=== PATIENT | female | born 1960 | race Caucasian/White ===

== ENCOUNTER 2021-03-22 07:46 | Outpatient (REF) | payer OTHER, SELFPAY ==
[2021-03-22 08:23] LABS: MANUAL DIFF FLAG NO
[2021-03-22 08:30] LABS: Basophils Percent Auto 0.6 % (0-2); Eosinophils Absolute Auto 0.4 X10*3/uL (0.0-0.4); Eosinophils Percent Auto 7.6 % (0-4); Hematocrit 40.5 % (37-47); Hemoglobin 13.4 g/dl (12.0-16.0); Imm Gran Abs Auto 0.01 X10*3/uL (0.00-0.03); Imm Gran Pct Auto 0.2 % (0.0-0.4); Lymphocytes Absolute Auto 1.4 X10*3/uL (1.2-4.9); Lymphocytes Percent Auto 28.7 % (20-40); Mean Corpuscular HGB Conc 33.1 g/dl (31.0-35.0); Mean Corpuscular Hemoglobin 30.1 pg (27.0-33.0); Mean Platelet Volume 12.1 fL (9.4-12.3); Monocytes Absolute Auto 0.5 X10*3/uL (0.1-1.2); Monocytes Percent Auto 10.7 % (2-11); Neutrophils Absolute Auto 2.5 X10*3/uL (2.0-8.3); Neutrophils Percent Auto 52.2 % (45-73); Platelet Count 151 X10*3/uL (160-400); Red Blood Count 4.45 X10*6/uL (4.20-5.50); Red Cell Distribution Width 13.2 % (11.0-16.0); White Blood Count 4.8 X10*3/uL (4.8-10.8)
[2021-03-22 08:54] LABS: Alanine Aminotransferase 51 U/L (0-31); Albumin Level 4.1 g/dL (3.5-5.0); Alkaline Phosphatase 54 U/L (39-117); Anion Gap 13 (12-20); Aspartate Amino Transferase 34 U/L (5-31); Bilirubin Total 0.6 mg/dL (0.0-1.0); Blood Urea Nitrogen 12 mg/dL (9-16); Calcium 9.2 mg/dL (8.4-10.2); Carbon Dioxide 27 mmol/L (22-29); Chloride 103 mmol/L (96-108); Cholesterol 234 mg/dL; Estimated Glomerular Filt Rate > 60; Glucose Fasting 84 mg/dL (60-99); HDL Cholesterol 63 mg/dL; LDL Cholesterol Calculated 124 mg/dl; Potassium 4.5 mmol/L (3.3-5.1); Sodium 138 mmol/L (135-145); Total Protein 7.1 g/dL (6.5-8.0); Triglycerides 238 mg/dL
[2021-03-22 09:07] LABS: Free T4 (Free Thyroxine) 0.87 ng/dL (0.71-1.85); Thyroid Stimulating Hormone 1.29 uIU/mL (0.32-4.0)
== END 2021-03-22 07:47 | disposition home or self-care (01) ==
LOC: HO.LAB 07:46
PROVIDERS: PCP Internal Medicine; Visit Provider Internal Medicine
DX: Z00.00 Encounter for general adult medical examination without abnormal findings (principal); R00.2 Palpitations
CPT/HCPCS: 36415; 80053; 80061; 84439; 84443; 85025

== ENCOUNTER 2021-07-22 11:45 | Outpatient (REF) | payer OTHER, SELFPAY ==
[2021-07-22 14:27] LABS: D Dimer < 200 NG/ML
[2021-07-22 14:31] LABS: B Type Natriuretic Peptide 13 pg/mL (<100)
[2021-07-22 14:41] LABS: Alanine Aminotransferase 47 U/L (0-31); Albumin Level 4.3 g/dL (3.5-5.0); Alkaline Phosphatase 65 U/L (39-117); Anion Gap 14 (12-20); Aspartate Amino Transferase 30 U/L (5-31); Bilirubin Total 0.4 mg/dL (0.0-1.0); Blood Urea Nitrogen 11 mg/dL (9-16); C Reactive Protein 0.46 mg/dL (< or = 0.50); Calcium 9.7 mg/dL (8.4-10.2); Carbon Dioxide 26 mmol/L (22-29); Chloride 104 mmol/L (96-108); Estimated Glomerular Filt Rate > 60; Glucose Random 89 mg/dL (60-115); Potassium 4.2 mmol/L (3.3-5.1); Sodium 140 mmol/L (135-145); Total Protein 7.3 g/dL (6.5-8.0)
[2021-07-23 17:05] LABS: Thyroid Peroxidase Antibodies 1 IU/mL (<9)
== END 2021-07-22 11:46 | disposition home or self-care (01) ==
LOC: HO.10HDL 11:45
PROVIDERS: Visit Provider Internal Medicine
DX: R79.89 Other specified abnormal findings of blood chemistry (principal); R00.2 Palpitations; M54.6 Pain in thoracic spine
CPT/HCPCS: 36415; 80053; 83880; 85379; 86140; 86376

== ENCOUNTER → 2021-08-03 07:44 | Outpatient (REF) | payer OTHER, SELFPAY ==
--- NOTE | 2021-08-03 07:37 | CA_ITS ---
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 Normal LV systolic function with grade 1 diastolic dysfunction 2. Normal cardiac valvular Doppler 3. Normal RV systolic pressure 4. No pericardial effusion Findings Left Ventricle Normal left ventricular size, thickness, and systolic function. The visually estimated ejection fraction is between 60-65%. Spectral Doppler is indicative of an impaired relaxation filling pattern. E/E prime ratio is <8, consistent with normal filling pressures. Evidence suggests grade I (mild) diastolic dysfunction. Right Ventricle Normal right ventricular cavity size and systolic function. Atria The left atrium is normal in size. There is no evidence of interatrial shunt. The right atrium is normal in size. Aortic Valve Normal aortic valve structure and function. There is no aortic valve stenosis. There is no aortic valve regurgitation. Mitral Valve Normal mitral valve structure and function. There is trace mitral valve regurgitation. There is no mitral valve stenosis. Pulmonic Valve The pulmonic valve was not well visualized. Tricuspid Valve Likely normal tricuspid valve structure and function. There is mild tricuspid valve regurgitation. The right ventricular systolic pressure is normal. The right ventricular systolic pressure is 23 mmHg. Normal right atrial pressure. There is no evidence of pulmonary hypertension. Great Vessels All visible segments of the aorta are normal in size. The pulmonary artery was not well visualized. Venous The inferior vena cava is normal in size and collapses greater than 50% with inspiration. Pericardium/Pleural There is no evidence of pericardial effusion. Prior Study Comparison No prior study available for comparison. Measurements 2D Linear Measurements IVSd: 0.76 0.6-0.9/0.6-1.0 cm LVIDd: 3.87 3.9-5.3/4.2-5.9 cm LVIDd Index: 18.43 2.4-3.2/2.2-3.1 cm/m2 LVIDs: 2.37 2.0-3.6 cm LVPWd: 0.75 0.7-1.1 cm Ao Root: 3.10 2.1-3.5 cm LA Diam: 3.30 2.7-3.8/3.0-4.0 cm LAIDs Index: 15.71 1.5-2.3 cm/m2 LV Mass: 101.76 67-162/88-224 g LV Mass Index: 484.58 43-95/49-115 g/m2 LVOT Diam: 2.00 3.0+(-)1.3 cm Mitral Valve MV Pk E: 0.66 MV PK A: 0.99 MV Decel Time: 145.00 E/A: 0.70 E'Lateral: 10.90 E'Medial: 7.72 E/E' Med: 8.60 E/E' Lat: 6.10 PHT: 43.00 MVA PHT: 5.12 Decel Sequoyah: 4.57 Aortic Valve AoV Pk Jared: 1.18 AoV Mn Jared: 0.74 AoV VTI: 0.25 AoV Pk Grad: 6.00 Aov Mn Grad: 3.00 MAGALY Cont.VTI: 2.82 LVOT LVOT Pk Jared: 0.93 LVOT Mn Jared: 0.60 LVOT VTI: 0.22 LVOT Pk Grad: 3.00 LVOT Mn Grad: 2.00 LVOT Diam: 2.00 LVOT Area: 3.14 Diastolic Function MV Pk E: 0.66 MV Pk A: 0.99 E/A: 0.70 E'Medial: 7.72 E/E' Med: 8.60 E' Laterial: 10.90 E/E' Lat: 6.10 Tricuspid Valve TR Pk Jared: 2.23 TR Pk Grad: 20.00 RA Press: 3.00 RVSP: 23.00 Great Vessels Aorta Ao Root-2D: 3.10 2.0-3.7 cm Ao Asc: 2.90 2.1-3.4 cm Pulmonary Valve PV Pk Jared: 0.94 Peak PV Grad: 4.00 Updated in Other Vendor System with Status of Final Robert Dunn MD electronically signed on 08/04/2021 2:35:20 PM with status of Final
== END ==
LOC: HO.CARD 07:44
PROVIDERS: PCP Internal Medicine; Visit Provider Internal Medicine
DX: R06.02 Shortness of breath (principal); R00.2 Palpitations; R06.00 Dyspnea, unspecified
CPT/HCPCS: 93306

== ENCOUNTER → 2022-08-08 07:43 | Outpatient (REF) | payer OTHER, SELFPAY ==
--- NOTE | 2022-08-08 07:47 | CA_ITS ---
Acquisition Time: 2022-08-08 07:53:02 Total Exercise Time: 00:08:01 Test Indications: PALPITATIONS Medications: SEE CHART Protocol: NELDA Max HR: 162 BPM 101% of Pred: 159 BPM Max BP: 168/084 mmHG Max Work Load: 10.1 METS pt exercised on std nelda protocol for 8 min into stage 3. max hr 162-101%.no c/o cp or sob. isolated pvc's in recovery. clinically and elec neg. Referred By: Akash Lima Overread By:
== END ==
LOC: HO.CARD 07:43
PROVIDERS: PCP Internal Medicine; Visit Provider Internal Medicine
DX: R00.2 Palpitations (principal)
CPT/HCPCS: 93017

== ENCOUNTER 2024-06-13 07:59 | Outpatient (REF) | payer OTHER, SELFPAY ==
[2024-06-13 08:13] LABS: MANUAL DIFF FLAG NO
[2024-06-13 09:04] LABS: Basophils Absolute Auto 0.1 X10*3/uL (0.0-0.2); Basophils Percent Auto 0.8 % (0-2); Eosinophils Absolute Auto 0.3 X10*3/uL (0.0-0.4); Eosinophils Percent Auto 5.3 % (0-4); Hematocrit 42.5 % (37.0-47.0); Hemoglobin 14.4 g/dl (12.0-16.0); Imm Gran Abs Auto 0.02 X10*3/uL (0.00-0.03); Imm Gran Pct Auto 0.3 % (0.0-0.4); Lymphocytes Absolute Auto 1.8 X10*3/uL (1.2-4.9); Lymphocytes Percent Auto 28.9 % (20-40); Mean Corpuscular HGB Conc 33.9 g/dl (31.0-35.0); Mean Corpuscular Hemoglobin 30.3 pg (27.0-33.0); Mean Corpuscular Volume 89.3 fL (80.0-98.0); Mean Platelet Volume 12.1 fL (9.4-12.3); Monocytes Absolute Auto 0.7 X10*3/uL (0.1-1.2); Monocytes Percent Auto 11.7 % (2-11); Neutrophils Absolute Auto 3.2 x10*3/uL (2.0-8.3); Platelet Count 193 X10*3/uL (160-400); Red Blood Count 4.76 X10*6/uL (4.20-5.50); Red Cell Distribution Width 13.6 % (11.0-16.0); White Blood Count 6.1 X10*3/uL (4.8-10.8)
[2024-06-13 09:34] LABS: Alanine Aminotransferase 22 U/L (0-31); Albumin Level 4.3 g/dL (3.5-5.0); Alkaline Phosphatase 73 U/L (39-117); Anion Gap 12 (12-20); Aspartate Amino Transferase 20 U/L (5-31); Bilirubin Total 0.9 mg/dL (0.0-1.0); Blood Urea Nitrogen 13 mg/dL (9-16); Calcium 9.5 mg/dL (8.4-10.2); Carbon Dioxide 25 mmol/L (22-29); Chloride 103 mmol/L (96-108); Cholesterol 253 mg/dL (<200); Estimated Glomerular Filt Rate > 60; Glucose Fasting 109 mg/dL (60-99); HDL Cholesterol 79 mg/dL (>40); LDL Cholesterol Calculated 154 mg/dL (<100); Sodium 136 mmol/L (135-145); Total Protein 7.5 g/dL (6.5-8.0); Triglycerides 102 mg/dL (<150)
== END 2024-06-13 08:00 | disposition home or self-care (01) ==
LOC: HO.LAB 07:59
PROVIDERS: PCP Internal Medicine; Visit Provider Internal Medicine
DX: Z00.00 Encounter for general adult medical examination without abnormal findings (principal)
CPT/HCPCS: 36415; 80053; 80061; 85025

== ENCOUNTER 2024-12-26 08:56 | Outpatient (REF) | payer OTHER, SELFPAY | END 2024-12-26 08:57 | disposition home or self-care (01) | LOC: HO.SH 08:56 | PROVIDERS: Visit Provider Internal Medicine | DX: Z01.118 Encounter for examination of ears and hearing with other abnormal findings (principal); H90.3 Sensorineural hearing loss, bilateral | CPT/HCPCS: 92557; 92567 ==

== ENCOUNTER 2025-02-10 06:28 | Outpatient (REF) | payer OTHER, SELFPAY ==
[2025-02-10 06:53] LABS: MANUAL DIFF FLAG NO
[2025-02-10 07:22] LABS: Basophils Percent Auto 0.8 % (0-2); Eosinophils Absolute Auto 0.4 X10*3/uL (0.0-0.4); Eosinophils Percent Auto 7.2 % (0-4); Hematocrit 42.2 % (37.0-47.0); Hemoglobin 13.8 g/dl (12.0-16.0); Imm Gran Abs Auto 0.01 X10*3/uL (0.00-0.03); Imm Gran Pct Auto 0.2 % (0.0-0.4); Lymphocytes Absolute Auto 1.6 X10*3/uL (1.2-4.9); Lymphocytes Percent Auto 30.7 % (20-40); Mean Corpuscular HGB Conc 32.7 g/dl (31.0-35.0); Mean Corpuscular Hemoglobin 30.1 pg (27.0-33.0); Mean Corpuscular Volume 92.1 fL (80.0-98.0); Mean Platelet Volume 11.7 fL (9.4-12.3); Monocytes Absolute Auto 0.6 X10*3/uL (0.1-1.2); Monocytes Percent Auto 11.1 % (2-11); Neutrophils Absolute Auto 2.6 x10*3/uL (2.0-8.3); Platelet Count 179 X10*3/uL (160-400); Red Blood Count 4.58 X10*6/uL (4.20-5.50); Red Cell Distribution Width 13.8 % (11.0-16.0); White Blood Count 5.1 X10*3/uL (4.8-10.8)
[2025-02-10 07:45] LABS: Alanine Aminotransferase 22 U/L (0-31); Albumin Level 4.2 g/dL (3.5-5.0); Alkaline Phosphatase 69 U/L (39-117); Anion Gap 11 (12-20); Aspartate Amino Transferase 21 U/L (5-31); Bilirubin Direct 0.3 mg/dL (0.0-0.5); Bilirubin Total 1.1 mg/dL (0.0-1.0); Blood Urea Nitrogen 10 mg/dL (9-16); Calcium 9.7 mg/dL (8.4-10.2); Carbon Dioxide 29 mmol/L (22-29); Chloride 105 mmol/L (96-108); Cholesterol 198 mg/dL (<200); Estimated Glomerular Filt Rate > 60; Glucose Fasting 103 mg/dL (60-99); HDL Cholesterol 75 mg/dL (>40); LDL Cholesterol Calculated 106 mg/dL (<100); Potassium 4.4 mmol/L (3.3-5.1); Sodium 141 mmol/L (135-145); Total Protein 7.3 g/dL (6.5-8.0); Triglycerides 89 mg/dL (<150)
== END 2025-02-10 06:29 | disposition home or self-care (01) ==
LOC: HO.LAB 06:28
PROVIDERS: PCP Internal Medicine; Visit Provider Internal Medicine
DX: I10 Essential (primary) hypertension (principal); E78.00 Pure hypercholesterolemia, unspecified
CPT/HCPCS: 36415; 80053; 80061; 80076; 82248; 85025

== ENCOUNTER 2025-05-18 14:57 | Outpatient (AMB) | payer OTHER, SELFPAY ==
--- NOTE | 2025-05-18 15:13 | MHC.PC.OV ---
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 CV: On lisinopril 5mg daily, lipitor 10mg daily GERd: on omeprazole heme/onc: Bilateral breast cancer . danny Fall at [facility]. Patient received tamoxifen x 3 years, 1/2 dose for an additional year, ductal excision bilaterally Right SI joint pain. Goes frequently chiropractor. Previously pain would completely resolve for some time now its just lessening and relief last a less amount of time Colonoscopy 10/22/2023-5 years. Mammo 08/25/2024 ROS see HPI PHYSICAL EXAM: GENERAL: Alert and oriented x 3. NAD EYES: EOMI. Anicteric. HENT: Moist mucous membranes. No scleral icterus. No cervical lymphadenopathy. LUNGS: Clear to auscultation bilaterally. CARDIOVASCULAR: Regular rate and rhythm. No murmur. No JVD. ABDOMEN: Soft, non-tender +bs EXTREMITIES: No edema. Non-tender. SKIN: No rashes or lesions. Warm. NEUROLOGIC: No focal neurological deficits. CN II-XII grossly intact PSYCHIATRIC: Cooperative. Appropriate mood and affect [facility] Surgical History (Updated 03/29/25 @ 08:12 by Camryn uDarte) History of colonoscopy (~10/22/23) Social History Patient Tobacco Use Status: Former Tobacco user e-Cigarette/Vaping Use: Never Used Questionnaire AUDIT C Alcohol Use Questionnaire (AUDIT-C) 1. How often do you have a drink containing alcohol?: 4 or more times a week 2. How many drinks containing alcohol do you have on a typical day when you are drinking?: 1 or 2 Total Score: 4 Physical exam (Primary Care) Vital Signs: Last Vital Signs Temp 97.1 F 05/18/25 15:25 Pulse 75 05/18/25 15:25 Resp 16 05/18/25 15:25 BP 108/68 05/18/25 15:25 Pulse Ox 97 05/18/25 15:25 Oxygen Delivery Method Room Air 05/18/25 15:25 BMI result Body Mass Index 22.7 Tobacco/Smoking Status: Tobacco use Status Tobacco use date assessed 05/18/25 05/18/25 15:14 Patient Tobacco Use Status Former Tobacco user 05/18/25 15:28 e-Cigarette/Vaping Use Never Used 05/18/25 15:28 Coding Level of Care Code New Pt Prev Care 40-64y(57048) Diagnoses Physical exam Z00.00 Primary hypertension I10 Hypertension type: primary hypertension Hyperlipidemia, unspecified hyperlipidemia type E78.5 Hyperlipidemia type: unspecified Assessment & Plan Assessment & Plan (1) Physical exam: Code(s): Z00.00 - Encounter for general adult medical examination without abnormal findings (2) Hypertension: Code(s): I10 - Essential (primary) hypertension Category: Medical Qualifiers: Hypertension type: primary hypertension Qualified Code(s): I10 - Essential (primary) hypertension (3) Hyperlipidemia: Code(s): E78.5 - Hyperlipidemia, unspecified Category: Medical Qualifiers: Hyperlipidemia type: unspecified Qualified Code(s): E78.5 - Hyperlipidemia, unspecified Plan CPE/establish Past medical, surgical, social reviewed Hyperlipidemia-continue atorvastati. Labs ordered Right SI pain-baseline xray. consider acupressure, physiatry Orders: Orders XR lumbar spine 2-3V 05/18/25 M53.3 - Sacrococcygeal disorders, not elsewhere classified Medications: New atorvastatin 10 mg PO DAILY 90 tabs 3RF lisinopril 5 mg PO DAILY 90 tabs 3RF omeprazole 20 mg PO DAILY 90 caps 3RF
[2025-05-18 15:25] VITALS: BP 108/68; PULSE 75; RESP 16; TEMP 36.2; O2SAT 97; BMI 22.7
== END 2025-05-18 16:21 | disposition home or self-care (01) ==
LOC: HO.HMCHD 14:58
PROVIDERS: PCP Internal Medicine; Visit Provider Internal Medicine
DX: Z00.00 Encounter for general adult medical examination without abnormal findings (principal); I10 Essential (primary) hypertension; E78.5 Hyperlipidemia, unspecified

== ENCOUNTER 2025-09-20 15:28 | Outpatient (AMB) | payer OTHER, SELFPAY ==
[2025-09-20 15:30] VITALS: BP 120/70; PULSE 89; TEMP 36.2; O2SAT 98; BMI 23.7
--- NOTE | 2025-09-20 15:30 | A.OFFPC_ITS ---
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 Accompanied by: Self / Same As Patient Allergies No Known Allergies (No Known Allergies*) Allergy (Verified 09/20/25 15:30) Tobacco use date assessed: 09/20/25 Fall risk assessment: No Falls in past year Last assessed Fall Risk: 09/20/25 Dental Screening Dental Screen Date: 09/20/25 Did you have a dental visit in the last 12 months?: Yes Did you have a dental problem in the last 6 months where you did not have access to dental care?: No HPI HPI Comments History of Present Illness Details The patient is a 64 year old female with a past medical history of hypertension, hyperlipidemia, GERD, breast cancer, colon polyps presenting for annual exam. CV: On lisinopril 5mg daily, lipitor 10mg daily GERd: on omeprazole heme/onc: Bilateral breast cancer . danny Fall at [facility]. Patient received tamoxifen x 3 years, 1/2 dose for an additional year, stopped 3 years. ductal excision bilaterally. Right SI joint pain. Goes frequently chiropractor. Previously pain would completely resolve for some time now its just lessening and relief last a less amount of time Concerns: Bilateral lower abd/pelvic pressure. Initially very uncomfortable like bladder was completely full. Still some light pressure primarily suprapubic. She does lift at work but denies injury. Had some nausea initally. No vomiting, diarrhea, bloody stools, change in bowel habits. Went to urgent care. No UTI. Needs manager community outreach. No fevers, chills, dysuria, hematuria, urgency, vaginal bleeding or abn discharge Health Maintenance: Colonoscopy 10/22/2023-5 years. Mammo 08/25/2024 ROS: see hpi EXAM: Constitutional - Awake and Alert, No apparent distress Eyes - PERRL Cardiovascular - S1S2, RRR, No edema Respiratory - Normal lung expansion, Normal respiratory effort, No respiratory distress, CTA bilaterally Abd - soft/nondistended. Tenderness over suprapubic area and bilateral pelvis/lower abd. BS x4. No guarding or rebound Extremities - no calf tenderness bilaterally, no swelling Skin - Warm/Dry Neurological - Alert & oriented x3 Psychological - Appropriate affect [facility] Surgical History History of colonoscopy (~10/22/23) Family History (Updated 09/20/25 @ 15:39 by Mamta Horan MA) Mother No problems noted. Father No problems noted. Social History Housing: House Patient Tobacco Use Status: Former Tobacco user e-Cigarette/Vaping Use: Former Use service: No Current occupational status: retired Current occupational exposures/hazards: No Cognitive needs: No Hearing needs: No Vision needs: Yes (RX glasses) Questionnaire PHQ-9 Over the last 2 weeks, how often have you been bothered by any of the following problems? 1. Little interest or pleasure in doing things: not at all 2. Feeling down, depressed, or hopeless: not at all 3. Trouble falling or staying asleep, or sleeping too much: not at all 4. Feeling tired or having little energy: not at all 5. Poor appetite or overeating: not at all 6. Feeling bad about yourself - or that you are a failure or have let yourself or your family down: not at all 7. Trouble concentrating on things, such as reading the newspaper or watching television: not at all 8. Moving or speaking so slowly that other people could have noticed. Or the opposite - being so fidgety or restless that you have been moving around a lot more than usual: not at all 9. Thoughts that you would be better off or of hurting yourself in some way: not at all Total score: 0 Depression Screening Interpretation: Negative Depression Screening Done: Yes Source: Developed by Drs. Mikel Cline, Kimi Woods, Terrance Bautista and colleagues, with an educational luis a from [employer]. Thrive Questionnaire Date Thrive assessed: 09/20/25 I am a: Patient Within the past 12 months, did the food you bought not last and you didn't have the money to get more?: Never true Within the past 12 months, did you worry whether your food would run out before you got money to buy more?: Never true Do you have trouble paying for medicines?: No Do you have trouble getting transportation to medical appointments?: No Do you have trouble paying your heating and electricity bill?: No Do you have trouble taking care of your child, family member or friend?: No Do you have trouble with day-to-day activities such as bathing, preparing meals, shopping, managing finances, etc.?: No Are you currently unemployed and looking for a job?: No Are you interested in more education?: No THRIVE Score: 0 AUDIT C Alcohol Use Questionnaire (AUDIT-C) 1. How often do you have a drink containing alcohol?: Never 3. How often do you have six or more drinks on one occasion?: Never Total Score: 0 PK-7 AMB Questionnaire PK-7 Date PK - 7 assessed: 09/20/25 Feeling nervous, anxious, or on edge: 0 = Not at all Not being able to stop or control worryin = Not at all Worrying too much about different things: 0 = Not at all Trouble relaxin = Not at all Being so restless that it is hard to sit still: 0 = Not at all Becoming easily annoyed or irritable: 0 = Not at all Feeling afraid as if something awful might happen: 0 = Not at all Total PK-7 score (0-4 normal; 5-9 mild; 10-14 moderate; 15-21 severe): 0 Source: Developed by Drs. Mikel Cline, Kimi Woods, Terrance Bautista and colleagues, with an educational luis a from [employer]. Physical exam (Primary Care) Vital Signs: Last Vital Signs Temp 97.2 F 09/20/25 15:30 Pulse 89 09/20/25 15:30 BP 120/70 09/20/25 15:30 Pulse Ox 98 09/20/25 15:30 Oxygen Delivery Method Room Air 09/20/25 15:30 BMI result Body Mass Index 23.7 Tobacco/Smoking Status: Tobacco use Status Tobacco use date assessed 09/20/25 09/20/25 15:31 Patient Tobacco Use Status Former Tobacco user 09/20/25 15:30 e-Cigarette/Vaping Use Former Use 09/20/25 15:39 PHQ-9: PHQ-9 Score PHQ-9: Total score 0 09/20/25 15:53 Depression Screening Interpretation: Negative Thrive Assessment: Date of Thrive Assessment Date Thrive assessed 09/20/25 09/20/25 15:31 Coding Level of Care Code Est Pt Level 4 (11154) Complex visit Add On G2211 Diagnoses Primary hypertension I10 Hypertension type: primary hypertension Hyperlipidemia, unspecified hyperlipidemia type E78.5 Hyperlipidemia type: unspecified Suprapubic pressure R10.24 Bilateral pelvic pain R10.23 Assessment & Plan Assessment & Plan (1) Hypertension: Code(s): I10 - Essential (primary) hypertension Category: Medical Qualifiers: Hypertension type: primary hypertension Qualified Code(s): I10 - Essential (primary) hypertension Plan: Controlled. Continue lisinopril. Check renal function and electrolytes (2) Hyperlipidemia: Code(s): E78.5 - Hyperlipidemia, unspecified Category: Medical Qualifiers: Hyperlipidemia type: unspecified Qualified Code(s): E78.5 - Hyperlipidemia, unspecified Plan: Reviewed lipid panel. Reasonably controlled. Continue atorvastatin and diet low in saturated fats/highly processed foods (3) Suprapubic pressure: Code(s): R10.24 - Suprapubic pain Category: Medical Plan: Check UA r/o infection. Bladder nondistended, no retension. Check bladder and transvaginal/us. Referral to manager community outreach placed. (4) Bilateral pelvic pain: Code(s): R10.23 - Pelvic and perineal pain bilateral Category: Medical Plan: see above Plan Follow up in 6 months Orders: Orders US bladder 09/20/25 R10.23 - Pelvic and perineal pain bilateral, R10.24 - Suprapubic pain, Z85.3 - Personal history of malignant neoplasm of breast US pelvic and transvaginal 09/20/25 R10.23 - Pelvic and perineal pain bilateral, R10.24 - Suprapubic pain, Z85.3 - Personal history of malignant neoplasm of breast Basic Metabolic Panel 09/20/25 I10 - Essential (primary) hypertension UA CC w/rflx Micro + Cult 09/20/25 R10.23 - Pelvic and perineal pain bilateral, R10.24 - Suprapubic pain, Z85.3 - Personal history of malignant neoplasm of breast Referrals DIRECTOR BUSINESS MANAGEMENT Referral R10.23 - Pelvic and perineal pain bilateral, Z85.3 - Personal history of malignant neoplasm of breast
== END 2025-09-20 16:15 | disposition home or self-care (01) ==
PROVIDERS: PCP Physician Assistant; Visit Provider Physician Assistant
DX: I10 Essential (primary) hypertension (principal); E78.5 Hyperlipidemia, unspecified; R10.24 Suprapubic pain; R10.23 Pelvic and perineal pain bilateral

== ENCOUNTER 2025-09-20 15:28 | Outpatient (REF) | payer OTHER, SELFPAY ==
[2025-09-20 17:27] LABS: Appearance Urine Clear; Glucose Urine UA Negative (Negative); PH 7.0 (5.0-9.0); Specific Gravity - Urine 1.010 (1.005-1.025); UMIC TRIGGER UACC YES
[2025-09-20 17:45] LABS: UACC Culture Trigger YES
[2025-09-20 18:02] LABS: Anion Gap 13 (12-20); Blood Urea Nitrogen 15 mg/dL (9-16); Calcium 9.8 mg/dL (8.4-10.2); Carbon Dioxide 29 mmol/L (22-29); Chloride 104 mmol/L (96-108); Estimated Glomerular Filt Rate > 60; Potassium 4.5 mmol/L (3.3-5.1); Sodium 141 mmol/L (135-145)
== END 2025-09-20 15:29 | disposition home or self-care (01) ==
LOC: HO.LAB 15:28
PROVIDERS: PCP Internal Medicine; Visit Provider Physician Assistant
DX: I10 Essential (primary) hypertension (principal); R10.24 Suprapubic pain; R10.23 Pelvic and perineal pain bilateral; Z85.3 Personal history of malignant neoplasm of breast; E78.5 Hyperlipidemia, unspecified
CPT/HCPCS: 36415; 80048; 81001; 87086; 96127

== ENCOUNTER 2025-10-03 14:09 | Outpatient (REF) | payer OTHER, SELFPAY ==
--- NOTE | ~2025-10-03 | US_ITS ---
EXAMINATION: US PELVIS TRANSABDOMINAL AND transvaginal HISTORY: R10.24 - Suprapubic pain COMPARISON: There are no prior studies available for comparison. TECHNIQUE: Transabdominal and transvaginal real-time 2D valenzuela-scale ultrasound was performed. FINDINGS: LMP:Postmenopausal Uterus: The uterus is normal in size, measuring 6.1 x 2.7 x 4 cm. Myometrium has a normal echotexture. No focal uterine lesions. Endometrium: The endometrial stripe measures 2 mm in thickness. Right ovary: The right ovary measures 2 x 1.2 x 2.3 cm. Volume 2.9 mL The right ovary is normal in size and echotexture. Left ovary: The left ovary measures 1.9 x 0.8 x 1.7 cm. Volume 1.3 mL The left ovary is normal in size and echotexture. Pelvic fluid: none. US/US pelvic and transvaginal IMPRESSION: No significant abnormality demonstrated by ultrasound Electronically signed by: Mason Quiroz MD 10/03/2025 03:18 PM [facility]
== END 2025-10-03 14:10 | disposition home or self-care (01) ==
LOC: HO.US 14:09
PROVIDERS: PCP Physician Assistant; Visit Provider Physician Assistant
DX: R10.24 Suprapubic pain (principal); R10.23 Pelvic and perineal pain bilateral; Z85.3 Personal history of malignant neoplasm of breast
CPT/HCPCS: 76830; 76856

== ENCOUNTER → 2025-10-03 14:10 | Outpatient (BNV) | payer OTHER, SELFPAY | PROVIDERS: PCP Physician Assistant; Visit Provider Radiology Diagnostic Ultrasound | DX: R10.24 Suprapubic pain (principal) | CPT/HCPCS: 76830; 76856 ==

== ENCOUNTER 2025-10-04 08:12 | Outpatient (REF) | payer OTHER, SELFPAY ==
[2025-10-05 01:32] LABS: Bacterial Vaginosis PCR NEGATIVE (Negative); Candida Group PCR NOT DETECTED (Not Detect); Candida glab krusei PCR NOT DETECTED (Not Detect); Trichomonas vaginalis PCR NOT DETECTED (Not Detect)
== END 2025-10-04 08:13 | disposition home or self-care (01) ==
LOC: HO.LNP 08:12
PROVIDERS: PCP Physician Assistant; Visit Provider Advanced Practice Midwife
DX: R10.20 Pelvic and perineal pain unspecified side (principal); N89.8 Other specified noninflammatory disorders of vagina; Z20.2 Contact with and (suspected) exposure to infections with a predominantly sexual mode of transmission
CPT/HCPCS: 81515

== ENCOUNTER 2025-10-04 08:12 | Outpatient (AMB) | payer OTHER, SELFPAY ==
--- NOTE | 2025-10-04 08:14 | A.OFFVIS_ITS ---
Vital Signs 10/04/25 08:20 Height 5 ft 4 in Weight 133 lb BMI 22.8 BP 128/72 Intake Visit Reasons: Pelvic pain Intake Note: Per patient pelvic pain has subsided, lasted a few days. Comes and goes. Last pap smear 2 years ago, 1 abnormal pap smear 15+ years ago, colonoscopy done. 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 she describes it as feeling that her bladder is not fully emptied. She also reports intermittent white vaginal discharge noted w/o itch/odor. She denies any episodes of incontinence. She does report regular exercise including yoga and has recently started low weight-bearing exercises. Last documented Pap was in 2021 which was negative. Last documented mammogram was in 2023 which was negative. She reports she had a recent mammogram done on 09/22/2025. She will sign a release of information to obtain those records. She also reports a Pap smear 2 years ago and will sign a release of information to obtain those records as well. Personal hx Bilateral breast cancer , followed by Onc at [facility]. Patient received tamoxifen x 3 years, 1/2 dose for an additional year, stopped 3 years. ductal excision bilaterally. 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 A pelvic ultrasound was ordered by her PCP and was completed on yesterday results are reviewed with patient today [facility] Medical History (Updated 09/25/25 @ 12:34 by CONSTANTIN Hardy) Lobular carcinoma in situ (LCIS) of left breast Lobular carcinoma in situ of right breast Surgical History History of colonoscopy (~10/22/23) Family History (Updated 10/04/25 @ 08:15 by Afia Jeffery MA) Mother No problems noted. Father Colon cancer Social History Housing: House Patient Tobacco Use Status: Former Tobacco user e-Cigarette/Vaping Use: Former Use Patient : No service: No Current occupational status: retired Current occupational exposures/hazards: No Cognitive needs: No Hearing needs: No Vision needs: Yes (RX glasses) Female Reproductive History Menstrual Total pregnancies: 2 Full term: 2 History of abnormal pap smear: Yes (HPV ) Date of Mammogram: 09/22/25 ([facility] 1) Review of Systems Const Reports no additional complaints Eyes Reports no additional complaints ENT Reports no additional complaints Card Reports no additional complaints Resp Reports no additional complaints GI Reports no additional complaints Reports as per [facility] Skin/Breast Reports system reviewed and no additional complaints, except as documented Physical Exam Vital Signs: Last Vital Signs BP 128/72 10/04/25 08:20 BMI result Body Mass Index 22.8 Const General: cooperative, healthy appearing and no acute distress Orientation/consciousness: patient oriented x3 HEENT Head: Yes normal to inspection and Yes normocephalic Ears: external ears normal General nose exam: No nasal discharge present Neck Neck: Yes normal visual inspection Resp Effort & Inspection: normal respiratory effort and able to speak in complete sentences GI Inspection: No distended Palpation (GI): Soft to palpation, nontender and no masses Percussion: Yes normal to percussion External Female Exam: normal external appearance and normal appearance of the urethra Speculum Exam - Vagina: normal appearance of the vagina, vagina atrophic and other (SCANT BROWN VAG DISCHARGE likely d/t transvag scan) Speculum Exam - Cervix: normal appearance of the cervix and normal palpation (neg CMT) Bimanual exam- vagina & uterus: normal bimanual exam, normal palpation (neg CMT), uterine mobility normal, non-tender and other (supra-pubic pressure) Bimanual Exam- Adnexa, other: no masses and No adnexal tenderness Skin General skin exam: no rashes or lesions noted Neuro General: patient oriented x3 and moves all extremities Extrem General: Yes full ROM Psych Speech and movement: Normal speech and movement present Affect: normal affect Attitude: cooperative Thought process: Normal thought process present Results Reviewed Results Reviewed: Patient: Malka Rich MR#: [id number] : 1960 Acct:[id number] Age/Sex: 64 / F ADM Date: 10/03/25 Loc: HO.US Attending Dr: Ivonne KILLIAN Ordering Physician: Ivonne Mireles Date of Service: 10/03/25 Procedure(s): US pelvic and transvaginal Accession Number(s): [id number] cc: Ivonne Mireles~ Reason for Exam: R10.24 - Suprapubic pain EXAMINATION: US PELVIS TRANSABDOMINAL AND transvaginal HISTORY: R10.24 - Suprapubic pain COMPARISON: There are no prior studies available for comparison. TECHNIQUE: Transabdominal and transvaginal real-time 2D valenzuela-scale ultrasound was performed. FINDINGS: LMP:Postmenopausal Uterus: The uterus is normal in size, measuring 6.1 x 2.7 x 4 cm. Myometrium has a normal echotexture. No focal uterine lesions. Endometrium: The endometrial stripe measures 2 mm in thickness. Right ovary: The right ovary measures 2 x 1.2 x 2.3 cm. Volume 2.9 mL The right ovary is normal in size and echotexture. Left ovary: The left ovary measures 1.9 x 0.8 x 1.7 cm. Volume 1.3 mL The left ovary is normal in size and echotexture. Pelvic fluid: none. US/US pelvic and transvaginal IMPRESSION: No significant abnormality demonstrated by ultrasound Electronically signed by: Mason Quiroz MD 10/03/2025 03:18 PM [facility] Dictated By: Mason Quiroz MD Signed By: <Electronically signed by Mason Quiroz MD in OV> Assessment & Plan Assessment & Plan (1) Pelvic pressure in female: Code(s): R10.20 - Pelvic and perineal pain unspecified side (2) Vaginal Discharge: Code(s): N89.8 - Other specified noninflammatory disorders of vagina Plan The results of the pelvic ultrasound are benign with no evidence of uterine or ovarian abnormality. Her urine culture obtained from her PCP on 09/20 showed no growth/negative for UTI Patient is content encouraged to continue with her yoga and strengthening exercises. Patient is also encouraged to wear a support belt when working or heavy lifting Vaginal swabs are taken today and pending results will be treated if indicated Patient has a very remote history of abnormal Pap, though most recent was negative and is not due for a Pap smear/cervical cancer screen on today she will be scheduled for complete ANNUAL in the next month Orders: Orders Bacterial Vaginosis Panel 10/04/25 N89.8 - Other specified noninflammatory disorders of vagina, R10.20 - Pelvic and perineal pain unspecified side Coding Level of Care Code Tele New Pt Level 3 (88919) Diagnoses Pelvic pressure in female R10.20 Vaginal Discharge N89.8
[2025-10-04 08:20] VITALS: BP 128/72; BMI 22.8
== END 2025-10-04 15:19 | disposition home or self-care (01) ==
LOC: HO.HWSM 08:12
PROVIDERS: PCP Physician Assistant; Visit Provider Advanced Practice Midwife
DX: R10.20 Pelvic and perineal pain unspecified side (principal); N89.8 Other specified noninflammatory disorders of vagina
CPT/HCPCS: 99203